=== PATIENT | female | born 1970 | race Caucasian/White ===

== ENCOUNTER 2017-09-11 01:46 | Emergency (ER) | payer MEDICAID ==
[2017-09-11 01:46] VITALS: BMI 26.6
[2017-09-11 02:03] VITALS: RESP 14
[2017-09-11] MEDS ORDERED: Sodium Chloride 0.9% 1,000 ML IV ONE (02:04)
[2017-09-11 02:14] LABS: BASO # 0.1 K/uL (0.0-0.2); BASO % 0.7 % (0.0-2.0); EOS # 0.4 K/uL (0.0-0.7); EOS % 3.7 % (0.0-4.0); HEMATOCRIT 33.4 % (34.0-47.0); LYMPH # 3.1 K/uL (1.0-4.3); LYMPH % 29.1 % (20.0-40.0); MEAN CELL VOLUME 79.1 fL (81.0-99.0); MEAN CORPUSCULAR HEMOGLOBIN 25.8 pg (27.0-31.0); MEAN CORPUSCULAR HGB CONC 32.6 g/dL (33.0-37.0); MEAN PLATELET VOLUME 8.9 fL (7.2-11.7); MONO % 9.3 % (0.0-10.0); WHITE BLOOD COUNT 10.6 K/uL (4.8-10.8)
[2017-09-11] MEDS ORDERED: Sodium Chloride 0.9% 100 ML ONE (02:19)
[2017-09-11] MEDS ORDERED: DiphenhydrAMINE 50 mg/ml Inj IVP STA (02:30)
[2017-09-11 02:32] LABS: ALB/GLOB RATIO 1.1 (1.0-2.1); ALKALINE PHOSPHATASE 57 U/L (38-126); ALT/SGPT 33 U/L (9-52); AST/SGOT 22 U/L (14-36); BILIRUBIN,TOTAL 0.9 mg/dL (0.2-1.3); BLOOD UREA NITROGEN 13 mg/dL (7-17); CALCIUM 8.1 mg/dl (8.6-10.4); CARBON DIOXIDE 23 mmol/L (22-30); CHLORIDE 103 mmol/L (98-107); GFR AFRICAN-AMERICAN > 60; GLUCOSE,RANDOM 85 mg/dL (65-105); POTASSIUM 3.5 mmol/L (3.6-5.2); SODIUM 136 mmol/L (132-148); TOTAL PROTEIN 7.8 g/dL (6.3-8.3)
[2017-09-11] MEDS ORDERED: DiphenhydrAMINE 50 mg/ml Inj ONE ×2 (02:38→03:10)
--- NOTE | 2017-09-11 03:17 | C.PDOC ---
History Of Present Illness 47 year old female presents to the ED c/o abdominal pain mainly in the epigastric area since yesterday after eating some left over seafood. Patient states that todayshe had persistent nausea, swelling and itching in her face. Patient denies diarrhea, SOB, vomiting. Time Seen by Provider: 09/11/17 02:03 Chief Complaint (Nursing): Abdominal Pain History Per: Patient History/Exam Limitations: no limitations Onset/Duration Of Symptoms: Days Current Symptoms Are (Timing): Still Present Context: Food Severity: Mild Location Of Pain/Discomfort: Epigastric Radiation Of Pain To:: None Quality Of Discomfort: "Pain" Associated Symptoms: Nausea. denies: Fever, Chills, Vomiting, Diarrhea, Loss Of Appetite Exacerbating Factors: Food Alleviating Factors: denies: None Recent travel outside of the [place]: No Additional History Per: Patient Abnormal Vaginal Bleeding: No Past Medical History Reviewed: Historical Data, Nursing Documentation, Vital Signs Vital Signs: Last Vital Signs Temp 98.6 F 09/11/17 02:00 Pulse 62 09/11/17 02:00 Resp 14 09/11/17 02:00 BP 116/76 09/11/17 02:00 Pulse Ox 98 09/11/17 03:23 - Medical History PMH: No Chronic Diseases Surgical History: Cholecystectomy Family History: States: Unknown Family Hx - Social History Hx Tobacco Use: No Hx Alcohol Use: Yes Hx Substance Use: No - Immunization History Hx Tetanus Toxoid Vaccination: No Hx Influenza Vaccination: No Hx Pneumococcal Vaccination: No Review Of Systems Constitutional: Negative for: Fever, Chills Cardiovascular: Negative for: Chest Pain Respiratory: Negative for: Cough, Shortness of Breath Gastrointestinal: Positive for: Nausea, Abdominal Pain (Epigastric area). Negative for: Vomiting, Diarrhea Genitourinary: Negative for: Dysuria, Hematuria, Vaginal Discharge, Vaginal Bleeding Musculoskeletal: Negative for: Back Pain Neurological: Negative for: Weakness, Numbness Physical Exam - Physical Exam Appears: Non-toxic, No Acute Distress Skin: Rash (erythematous from the maxillary to the lateral aspect of bilateral eyes) Head: Swelling (infraorbital areas, mild erythema) Nose: No Discharge Oral Mucosa: Moist Tongue: No Swelling Lips: No Swelling Throat: Normal, No Erythema, No Exudate Neck: Normal ROM, Supple Chest: Symmetrical Cardiovascular: Rhythm Regular Respiratory: Normal Breath Sounds, No Accessory Muscle Use, No Rales, No Rhonchi , No Wheezing Gastrointestinal/Abdominal: Soft, No Tenderness, No Guarding, No Rebound Extremity: Normal ROM, No Pedal Edema Neurological/Psych: Oriented x3, Normal Speech, Normal Cognition ED Course And Treatment - Laboratory Results Result Diagrams: 09/11/17 02:12 09/11/17 02:12 O2 Sat by Pulse Oximetry: 98 (On RA) Pulse Ox Interpretation: Normal Progress Note: Plan: -Blood work ordered. -Benadryl 25 mg IVP. -Pepcid 20 mg IVP. -Solumedrol 125 mg IVP. -IV fluids. -Zofran 4 mg IVP Reevaluation Time: 04:42 Reassessment Condition: Improved (Pt sleeping comfortably in stretcher, reporting feeling better. Abd is soft NT. Pt tolerated PO fluids. Follow up and return precautions d/w pt thru daughter acting as safety spec with mother's consent. Pt acklnowledged understanding) Disposition Counseled Patient/Family Regarding: Studies Performed, Diagnosis, Need For Followup, Rx Given - Disposition Referrals: Osmin Romero Jr., MD [Family Provider] - Disposition: HOME/ ROUTINE Disposition Time: 04:48 Condition: STABLE Additional Instructions: Please follow up with PMD or in clinic Liquid to soft diet today Take meds as directed Return to ER if worse Prescriptions: Ondansetron [Zofran Odt] 4 mg PO TID #8 odt predniSONE [Prednisone] 40 mg PO DAILY #10 tab Instructions: Gastritis (ED), Food Allergy (ED) Forms: [employer] (Burmese) Print Language: MICRONESIAN - POA Present On Arrival: Blood Incompatibility - Clinical Impression Clinical Impression: Food allergic skin reaction, Gastritis - PA / INSPECTOR FLOOR / Resident Statement MD/DO has reviewed & agrees with the documentation as recorded. - Scribe Statement The provider has reviewed the documentation as recorded by the Scribe Nhaun Lanier All medical record entries made by the Julesibkehinde were at my direction and personally dictated by me. I have reviewed the chart and agree that the record accurately reflects my personal performance of the history, physical exam, medical decision making, and the department course for this patient. I have also personally directed, reviewed, and agree with the discharge instructions and disposition.
[2017-09-11 05:09] VITALS: BP 110/70; PULSE 70; TEMP 97.2; O2SAT 99
== END 2017-09-11 05:09 | disposition home or self-care (01) ==
LOC: C.ER 01:46
DX: K29.70 Gastritis, unspecified, without bleeding (principal); L27.2 Dermatitis due to ingested food
CPT/HCPCS: 80053; 83690; 85025; 96374; 96375; 99284; J1200; J2405; J2930; J7040

== ENCOUNTER 2017-09-30 08:18 | Emergency (ER) | payer MEDICAID ==
[2017-09-30 08:18] VITALS: BMI 26.6
[2017-09-30 09:08] VITALS: PULSE 65
--- NOTE | 2017-09-30 09:16 | C.PDOC ---
History Of Present Illness 47 year old female presents to ED for evaluation. Patient states that she went to get routine chest x-ray for TB screening for work 2 days ago, and was told she had abnormal x-ray, but is unsure of the results. Patient denies any chest pain, shortness of breath, cough, sputum, fever, chills, or any complaints at this time. Time Seen by Provider: 09/30/17 08:34 Chief Complaint (Nursing): Chest Pain History Per: Patient History/Exam Limitations: no limitations Onset/Duration Of Symptoms: Days Severity: None Pain Scale Rating Of: 0 Recent travel outside of the [place]: No Additional History Per: Patient Past Medical History Reviewed: Historical Data, Nursing Documentation, Vital Signs Vital Signs: Last Vital Signs Temp 98.6 F 09/30/17 10:03 Pulse 65 09/30/17 10:03 Resp 16 09/30/17 10:03 BP 103/67 09/30/17 10:03 Pulse Ox 100 09/30/17 10:03 - Medical History PMH: No Chronic Diseases Surgical History: Cholecystectomy Family History: States: Unknown Family Hx - Social History Hx Tobacco Use: No Hx Alcohol Use: Yes Hx Substance Use: No - Immunization History Hx Tetanus Toxoid Vaccination: No Hx Influenza Vaccination: No Hx Pneumococcal Vaccination: No Review Of Systems Except As Marked, All Systems Reviewed And Found Negative. Constitutional: Negative for: Fever, Chills Cardiovascular: Negative for: Chest Pain, Palpitations Respiratory: Negative for: Cough, Shortness of Breath, Sputum, Wheezing Gastrointestinal: Negative for: Abdominal Pain Genitourinary: Negative for: Dysuria Skin: Negative for: Rash Neurological: Negative for: Headache, Dizziness Physical Exam - Physical Exam Appears: Non-toxic, No Acute Distress, Other (anxious, upset) Skin: Normal Color, Warm, Dry Head: Atraumatic, Normacephalic Eye(s): bilateral: Normal Inspection, EOMI Nose: Normal Oral Mucosa: Moist Neck: Normal ROM, Supple Chest: Symmetrical Cardiovascular: Rhythm Regular, No Murmur Respiratory: Normal Breath Sounds, No Rales, No Rhonchi, No Wheezing Gastrointestinal/Abdominal: Soft, No Tenderness Extremity: Normal ROM, No Tenderness, No Deformity, No Swelling Neurological/Psych: Oriented x3, Normal Speech Gait: Steady ED Course And Treatment O2 Sat by Pulse Oximetry: 97 (RA) Pulse Ox Interpretation: Normal Medical Decision Making Medical Decision Making: EKG obtained during triage NS at 80bpm Plan: * Chest x-ray Reassess Case discussed with attending. He recommends TB lab test to give patient confirmed result. Lab will not results today. Patient will be contacted regarding results. Patient stable for discharge Disposition Counseled Patient/Family Regarding: Diagnosis, Need For Followup - Disposition Referrals: Osmin Romero Jr., MD [Medical Doctor] - Disposition: HOME/ ROUTINE Disposition Time: 09:52 Condition: STABLE Additional Instructions: Anival corona para mas evaluacin. Instructions: Anxiety (ED) Forms: [employer] (Kazakh) Print Language: LITHUANIAN - POA Present On Arrival: None - Clinical Impression Clinical Impression: Normal screening chest x-ray for tuberculosis, Anxiety - PA / MANAGER COMMUNITY RELATIONS / Resident Statement MD/DO has reviewed & agrees with the documentation as recorded. - Scribe Statement The provider has reviewed the documentation as recorded by the Scribe Brianda Scott All medical record entries made by the Scribe were at my direction and personally dictated by me. I have reviewed the chart and agree that the record accurately reflects my personal performance of the history, physical exam, medical decision making, and the department course for this patient. I have also personally directed, reviewed, and agree with the discharge instructions and disposition.
[2017-09-30 10:06] VITALS: BP 103/67; RESP 16; TEMP 98.6
--- NOTE | 2017-09-30 10:13 | RAD ---
HISTORY: COMPARISON: No prior. TECHNIQUE: Chest PA and lateral FINDINGS: LINES AND TUBES: None. LUNG AND PLEURA: There is mild pulmonary hyperinflation and peribronchial thickening with streaky opacities in the lungs. There is minimal subsegmental atelectasis in the right lower lobe. No focal consolidation HEART AND MEDIASTINUM: The heart is not enlarged. The hilar and mediastinal contours are within normal limits. SKELETAL STRUCTURES: The bony structures are within normal limits for the patient's age. VISUALIZED UPPER ABDOMEN: Normal. OTHER FINDINGS: None. IMPRESSION: Findings are most compatible with reactive small airway disease/viral/ atypical bronchitis. No lobar pneumonia.
[2017-09-30 13:44] VITALS: O2SAT 97
--- NOTE | 2017-10-04 11:30 | CARD ---
APPROVED REPORT EKG Measurement Heart [id number] <Conclusion> Normal sinus rhythm Low voltage QRS Borderline ECG
== END 2017-09-30 10:13 | disposition home or self-care (01) ==
LOC: C.ER 08:18
DX: F41.9 Anxiety disorder, unspecified (principal); Z11.1 Encounter for screening for respiratory tuberculosis

== ENCOUNTER 2017-12-11 14:18 | Emergency (ER) | payer MEDICAID ==
[2017-12-11 14:18] VITALS: BMI 26.6
[2017-12-11 14:30] VITALS: RESP 16; TEMP 97.8
[2017-12-11 14:55] LABS: SQUAMOUS EPITHIAL 4 /hpf (0-5); URINE BILIRUBIN NEGATIVE (NEGATIVE); URINE BLOOD NEGATIVE (NEGATIVE); URINE CLARITY Hazy (Clear); URINE COLOR Yellow (YELLOW); URINE GLUCOSE (UA) NORMAL (Normal); URINE LEUKOCYTE ESTERASE NEG Leu/uL (Negative); URINE NITRATE NEGATIVE (NEGATIVE); URINE PROTEIN NEGATIVE (NEGATIVE); URINE UROBILINOGEN NORMAL mg/dL (0.2-1.0)
--- NOTE | 2017-12-11 15:18 | C.PDOC ---
History Of Present Illness 47 y/o female presents to the ED for evaluation of persistent suprapubic abdominal which began 1 month ago. Patient reports occasional radiation of pain into her lower back, dysuria and polyuria. Patient denies fever, nausea, vomiting. She saw her LOG SKIDDER for the same sx 2 weeks ago and is s/p Keflex x 1 week which she completed last week. Patient states symptoms have no improved. She has a normal appetite. Denies weight loss. No pain medication tried. Patient is s/p outpatient US, pending f/u this week for results. History obtained via postpartum rn. VIA TRANS PERSIST SUPRAPUB PAIN X 1 MO. OCC RADIATION LOWER BACK, +DYSURIA AND POLYURIA. NO FEVER, NV. SAW OBGYN FOR SAME 2 WEEKS AGO, S/P KEFLEX X 1 WEEK COMPLETED LAST WEEK. NO IMPROVE SX. NORMAL APPETITE, NO WEIGHT LOSS. NO PAIN MEDS TRIED. S /P OUTPUT US, PENDING FU THIS WEEK FOR RESULTS EXAM NAD ABD SOFT NT ND NO R/G BACK NO CVAT NO SPASM LOCAL TEND AROM WO DIFF REMAINDER NEG MDM NO S/S ACUTE ABD. ADVISED NEED FU OBGYN SCHEDULED, POSSIBLE EVAL BY UROLOGIST. REFERRAL GIVEN. PAIN MEDS Time Seen by Provider: 12/11/17 14:29 Chief Complaint (Nursing): Female Genitourinary History Per: Patient, High School Art Teacher History/Exam Limitations: language barrier Onset/Duration Of Symptoms: Persistent, Other (1 month ) Current Symptoms Are (Timing): Still Present Quality Of Discomfort: "Pain" Associated Symptoms: Urinary Symptoms (dysuria, polyuria ). denies: Fever, Nausea, Vomiting Additional History Per: Patient Abnormal Vaginal Bleeding: No Past Medical History Reviewed: Historical Data, Nursing Documentation, Vital Signs Vital Signs: Last Vital Signs Temp 97.8 F 12/11/17 14:28 Pulse 70 12/11/17 15:44 Resp 16 12/11/17 15:44 BP 110/81 12/11/17 15:44 Pulse Ox 99 12/11/17 15:44 - Medical History PMH: No Chronic Diseases Surgical History: Cholecystectomy Family History: States: Unknown Family Hx - Social History Hx Tobacco Use: No Hx Alcohol Use: Yes Hx Substance Use: No - Immunization History Hx Tetanus Toxoid Vaccination: No Hx Influenza Vaccination: No Hx Pneumococcal Vaccination: No Review Of Systems Constitutional: Negative for: Fever, Chills Gastrointestinal: Positive for: Abdominal Pain (suprapubic ). Negative for: Nausea, Vomiting Physical Exam - Physical Exam Appears: Non-toxic, No Acute Distress Skin: Normal Color, Warm, Dry Head: Atraumatic, Normacephalic Eye(s): bilateral: Normal Inspection Oral Mucosa: Moist Neck: Supple Chest: Symmetrical, No Deformity, No Tenderness Cardiovascular: Rhythm Regular, No Murmur Respiratory: Normal Breath Sounds, No Rales, No Rhonchi, No Wheezing Gastrointestinal/Abdominal: Soft, No Tenderness, No Guarding, No Rebound Back: No CVA Tenderness, No Muscle Spasm, Other (localized tenderness, AROM without difficulty ) Extremity: Normal ROM, Capillary Refill (less than 2 seconds ) Neurological/Psych: Normal Speech, Normal Cognition Gait: Steady ED Course And Treatment O2 Sat by Pulse Oximetry: 98 (on RA) Pulse Ox Interpretation: Normal Progress Note: UA ordered and reviewed. Toradol IM and Zofran PO administered. Medical Decision Making Medical Decision Making: NO S/S ACUTE ABD. ADVISED NEED FU OBGYN SCHEDULED, POSSIBLE EVAL BY UROLOGIST. REFERRAL GIVEN. PAIN MEDS Disposition Counseled Patient/Family Regarding: Studies Performed, Diagnosis, Need For Followup, Rx Given - Disposition Referrals: [facility] [Outside] [facility] [Outside] Eduardo Jones MD [Staff Provider] - Disposition: HOME/ ROUTINE Disposition Time: 15:29 Condition: IMPROVED Prescriptions: Naproxen 500 mg PO BID #30 tab Phenazopyridine HCl [Pyridium] 200 mg PO BID #6 tablet Instructions: Dysuria, Adult (DC) Forms: [employer] (Slovenian) Print Language: ZAMBIAN - Clinical Impression Clinical Impression: Dysuria, Chronic female pelvic pain - Scribe Statement The provider has reviewed the documentation as recorded by the Scribe (Lissett Scott) Provider Attestation: All medical record entries made by the Scribe were at my direction and personally dictated by me. I have reviewed the chart and agree that the record accurately reflects my personal performance of the history, physical exam, medical decision making, and the department course for this patient. I have also personally directed, reviewed, and agree with the discharge instructions and disposition.
[2017-12-11 15:44] VITALS: BP 110/81; PULSE 70
[2017-12-11 15:54] VITALS: O2SAT 98
== END 2017-12-11 15:44 | disposition home or self-care (01) ==
LOC: C.ER 14:18
DX: G89.29 Other chronic pain (principal); R10.2 Pelvic and perineal pain; R30.0 Dysuria
CPT/HCPCS: 81001; 87086; 96372; 99283; J1885

== ENCOUNTER 2018-03-14 05:36 | Emergency (ER) | payer MEDICAID ==
[2018-03-14 07:20] LABS: URINE BILIRUBIN NEGATIVE (NEGATIVE); URINE BLOOD 2+ (NEGATIVE); URINE CLARITY Hazy (Clear); URINE GLUCOSE (UA) NORMAL (Normal); URINE LEUKOCYTE ESTERASE 1+ Leu/uL (Negative); URINE PROTEIN 2+ mg/dL (NEGATIVE); URINE UROBILINOGEN NORMAL mg/dL (0.2-1.0)
[2018-03-14 07:32] LABS: URINE COLOR Red (YELLOW)
--- NOTE | 2018-03-14 07:42 | C.PDOC ---
History Of Present Illness 47yo female, presents to ED with complaints of recurrent pelvic bloating and a cramping pain for the past 2 weeks. She also reports two menstrual periods this month. She reports she had a "polyp" removal procedure done by her SWITCH ENGINEER in December 2017. She reports taking Midol with minimal relief. She denies any associated fever, chills, nausea, vomiting, hematuria or dysuria. PMD: Osmin Romero Jr. Time Seen by Provider: 03/14/18 06:06 Chief Complaint (Nursing): Abdominal Pain History Per: Patient History/Exam Limitations: no limitations Onset/Duration Of Symptoms: Days Current Symptoms Are (Timing): Still Present Quality Of Discomfort: Other (bloating) Associated Symptoms: denies: Fever, Chills, Nausea, Vomiting, Diarrhea, Urinary Symptoms Additional History Per: Patient Past Medical History Reviewed: Historical Data, Nursing Documentation, Vital Signs Vital Signs: Last Vital Signs Temp 97.7 F 03/14/18 05:49 Pulse 71 03/14/18 05:49 Resp 20 03/14/18 05:49 BP 102/69 03/14/18 05:49 Pulse Ox 97 03/14/18 08:14 - Medical History PMH: No Chronic Diseases Surgical History: Cholecystectomy Other Surgeries: polyp removal Family History: States: No Known Family Hx, Unknown Family Hx - Social History Hx Tobacco Use: No Hx Alcohol Use: Yes Hx Substance Use: No - Immunization History Hx Tetanus Toxoid Vaccination: No Hx Influenza Vaccination: No Hx Pneumococcal Vaccination: No Review Of Systems Except As Marked, All Systems Reviewed And Found Negative. Constitutional: Negative for: Fever, Chills Gastrointestinal: Positive for: Abdominal Pain (bloating). Negative for: Nausea , Vomiting, Diarrhea Genitourinary: Negative for: Dysuria, Hematuria Physical Exam - Physical Exam Appears: Non-toxic, No Acute Distress Skin: Normal Color, Warm, Dry Head: Atraumatic, Normacephalic Eye(s): bilateral: Normal Inspection Oral Mucosa: Moist Neck: Normal ROM, Supple Chest: Symmetrical Cardiovascular: Rhythm Regular Respiratory: Normal Breath Sounds Gastrointestinal/Abdominal: Soft, Tenderness (generalized lower pelvic tenderness with mild bloating) Extremity: Normal ROM Neurological/Psych: Oriented x3 ED Course And Treatment - Laboratory Results Result Diagrams: 03/14/18 07:55 03/14/18 07:55 O2 Sat by Pulse Oximetry: 97 (RA) Pulse Ox Interpretation: Normal Progress - Data Reviewed Data Reviewed: Old records Medical Decision Making Medical Decision Making: Impression: Pelvic cramping, abdominal bloating Plan: -- BMP -- CBC -- UPreg -- Urinalysis -- IV Fluids -- Toradol 30mg IVP -- Tylenol 975mg PO Disposition Counseled Patient/Family Regarding: Studies Performed, Diagnosis, Need For Followup - Disposition Referrals: [facility] [Other] Disposition: HOME/ ROUTINE Disposition Time: 09:05 Condition: IMPROVED Prescriptions: Naproxen 500 mg PO BID #30 tab Instructions: Heavy Periods (DC) Forms: [employer] (Ecuadorean) Print Language: LAO - Clinical Impression Clinical Impression: Metrorrhagia, Fibroid (bleeding) (uterine), Pelvic pain - Scribe Statement The provider has reviewed the documentation as recorded by the Scribe (Daisha Scott) Provider Attestation: All medical record entries made by the Scribe were at my direction and personally dictated by me. I have reviewed the chart and agree that the record accurately reflects my personal performance of the history, physical exam, medical decision making, and the department course for this patient. I have also personally directed, reviewed, and agree with the discharge instructions and disposition.
[2018-03-14] MEDS ORDERED: Sodium Chloride 0.9% 500 ML IV ONE (07:43)
[2018-03-14] MEDS ORDERED: Sodium Chloride 0.9% 1,000 ML ONE (07:56)
[2018-03-14 08:00] LABS: BASO # 0.1 K/uL (0.0-0.2); BASO % 0.8 % (0.0-2.0); EOS # 0.1 K/uL (0.0-0.7); EOS % 1.3 % (0.0-4.0); HEMOGLOBIN 12.5 g/dL (11.0-16.0); LYMPH # 2.5 K/uL (1.0-4.3); LYMPH % 28.5 % (20.0-40.0); MEAN CELL VOLUME 81.4 fL (81.0-99.0); MEAN CORPUSCULAR HEMOGLOBIN 27.8 pg (27.0-31.0); MEAN CORPUSCULAR HGB CONC 34.2 g/dL (33.0-37.0); MEAN PLATELET VOLUME 9.8 fL (7.2-11.7); MONO # 0.6 K/uL (0.0-0.8); MONO % 6.8 % (0.0-10.0); NEUT # 5.6 K/uL (1.8-7.0); NEUT % 62.6 % (50.0-75.0); RBC 4.48 Mil/uL (3.80-5.20); RED CELL DISTRIBUTION WIDTH 16.5 % (11.5-14.5); WHITE BLOOD COUNT 8.9 K/uL (4.8-10.8)
[2018-03-14 08:13] LABS: BLOOD UREA NITROGEN 12 mg/dL (7-17); CALCIUM 8.9 mg/dl (8.6-10.4); GFR AFRICAN-AMERICAN > 60; GFR NON-AFRICAN AMERICAN > 60
[2018-03-14 09:29] VITALS: BP 116/73; PULSE 65; RESP 15; O2SAT 99
[2018-03-14 09:31] VITALS: TEMP 98.6
== END 2018-03-14 09:42 | disposition home or self-care (01) ==
LOC: C.ER 05:36
DX: N92.1 Excessive and frequent menstruation with irregular cycle (principal); R10.2 Pelvic and perineal pain; D25.9 Leiomyoma of uterus, unspecified
CPT/HCPCS: 80048; 81001; 84703; 85025; 96374; 99285; J1885; J7040